=== PATIENT | female | born 1930 ===

== ENCOUNTER 2021-07-27 06:00 | Day surgery (SDC) | payer OTHER ==
[2021-07-27] MEDS ORDERED: METRONIDAZOLE500 MG PO (09:16)
== END 2021-07-27 11:30 | disposition home or self-care (01) ==
LOC: AMB-ENDOS 06:00
PROVIDERS: ATTEND Surgery
DX: D12.5 Benign neoplasm of sigmoid colon (principal); K52.89 Other specified noninfective gastroenteritis and colitis; Z20.822 Contact with and (suspected) exposure to COVID-19